=== PATIENT | male | born 1965 | race Caucasian/White ===

== ENCOUNTER → 2016-12-11 | Outpatient (CLI) | payer OTHER ==
[~2016-12-11] VITALS: Ht 180.3 cm; Wt 117.8 kg
[~2016-12-11] MED LIST: BUPRTAB51 PO; CLR10 PO; ESCI1TAB10 PO; FLUT0.0529 NAE; LOSA100T2 PO; MULT-842 PO; PRVC/40 PO; ZNTT/150 PO
[2016-12-11 15:53] VITALS: BP 131/84; PULSE 79; Ht 180.3 cm; Wt 117.8 kg
== END | disposition home or self-care (01) ==
LOC: C.NEUR 13:50
PROVIDERS: ATTEND Internal Medicine Pulmonary Disease
DX: G47.33 Obstructive sleep apnea (adult) (pediatric) (principal)

== ENCOUNTER → 2017-09-27 | Outpatient (CLI) | payer OTHER ==
[2017-09-27 09:42] LABS: HEMATOCRIT 45.9 % (42-52); MEAN CELL VOLUME 87.4 fL (80-100); MEAN CORPUSCULAR HEMOGLOBIN 31.6 pg (25-34); MEAN CORPUSCULAR HGB CONC 36.2 g/dl (32-36); MEAN PLATELET VOLUME 10.1 fL (7.4-10.4); PLATELET COUNT 233 K/uL (130-400); RED BLOOD COUNT 5.25 M/uL (4.7-6.1); WHITE BLOOD COUNT 7.28 K/uL (4.8-10.8)
[2017-09-27 10:18] LABS: ESTIMATED AVERAGE GLUCOSE 105 mg/dl; HA1C FLAG Normal (Normal)
[2017-09-27 10:25] LABS: ALT/SGPT 63 U/L (12-78); AST/SGOT 26 U/L (15-37); BLOOD UREA NITROGEN 17 mg/dl (7-18); BUN/CREATININE RATIO 13.3 (10-20); CARBON DIOXIDE 27 mmol/L (21-32); CHLORIDE 103 mmol/L (98-107); CREATININE 1.25 mg/dl (0.60-1.40); GLUCOSE 110 mg/dl (70-99); POTASSIUM 3.8 mmol/L (3.5-5.1); SODIUM 136 mmol/L (136-145)
[2017-09-27 10:38] LABS: ALKALINE PHOSPHATASE 108 U/L (45-117); CHOLESTEROL 213 mg/dl (0-200); HDL CHOLESTEROL 43 mg/dl; LDL CHOLESTEROL CALCULATED 137 mg/dl; THYROID STIMULATING HORMONE 0.856 uIu/ml (0.300-4.500); TRIGLYCERIDES 165 mg/dl (0-150); VERY LOW DENSITY LIPOPROT CALC 33 mg/dl
== END | disposition home or self-care (01) ==
LOC: C.LAB 07:55
PROVIDERS: ATTEND Internal Medicine
DX: R61 Generalized hyperhidrosis (principal); R63.1 Polydipsia; Z00.00 Encounter for general adult medical examination without abnormal findings; I10 Essential (primary) hypertension; E78.5 Hyperlipidemia, unspecified

== ENCOUNTER → 2017-12-09 | Outpatient (CLI) | payer OTHER ==
[~2017-12-09] VITALS: Ht 180.3 cm; Wt 117.7 kg
[~2017-12-09] MED LIST changes: +RANI150T85 PO; -ZNTT/150 PO
[2017-12-09 15:03] VITALS: BP 128/83; PULSE 76; Ht 180.3 cm; Wt 117.7 kg
== END | disposition home or self-care (01) ==
LOC: C.NEUR 14:51
PROVIDERS: ATTEND Physician Assistant
DX: G47.33 Obstructive sleep apnea (adult) (pediatric) (principal)